=== PATIENT | female | born 1955 | race Caucasian/White ===

== ENCOUNTER → 2018-11-05 | Outpatient (CLI) | payer BC, MEDICAID | LOC: CARD 13:48 | PROVIDERS: ATTEND Physician Assistant | DX: I08.1 Rheumatic disorders of both mitral and tricuspid valves (principal); I42.0 Dilated cardiomyopathy; I44.7 Left bundle-branch block, unspecified; Z95.810 Presence of automatic (implantable) cardiac defibrillator | CPT/HCPCS: 93306 ==

== ENCOUNTER → 2018-12-06 | Outpatient (CLI) | payer BC ==
[~2018-12-06] VITALS: Ht 167.6 cm; Wt 68.9 kg
[~2018-12-06] MED LIST: ASPI-586 PO; ATOR40TA PO; CATHETER FLUSH 10 ML SYR IV PRN; CHOL500049 PO; CNC1KV IM; CRV25T PO; FURO-125 PO; LORA10TA7 PO; MULT-436 PO; OMEG-25 PO; POTA10TA10 PO; REGADENOSON 0.4 MG/5 ML SYR (LEXISCAN) IV ONE; SACU1TAB PO
--- NOTE | 2018-12-06 19:10 | STRESS TEST ---
DATE OF SERVICE: 12/06/2018 LEXISCAN MYOVIEW STRESS TEST REPORT REFERRING PHYSICIAN: Nima Hopkins MD Baseline heart rate is 66. Baseline blood pressure 159/81. Baseline EKG is sinus rhythm with left bundle branch block. In summary, the patient was injected with 11.0 mCi of technetium-99 Myoview and the resting images were obtained. Then, the patient received 0.4 mg of Lexiscan followed by 32.0 mCi of technetium-99 Myoview. Throughout the test, there were no EKG changes. The resting and stress images were reviewed and compared in the short axis, horizontal long axis, and vertical long axis views. Review of the images showed breast attenuation. There is mild decreased uptake at the inferoapical segment and inferoseptum with mild reversibility. SSS is 5, SDS 4, TID value 1.07. On the gated images, the left ventricle appeared to be prominent with diffuse left ventricular hypokinesia, calculated ejection fraction 30%. CONCLUSION: 1. The patient tolerated Lexiscan well. 2. Breast attenuation with mild ischemia involving the mid to apical inferior wall and inferoseptum. 3. Prominent left ventricle with diffuse left ventricular hypokinesia, calculated ejection fraction 30%. Job ID: [id number] DocumentID: [id number] Dictated Date: 12/06/2018 16:40:13 Regulatory Consultant Date: 12/06/2018 19:09:40 Dictated By: ANGELO ROSE MD
== END ==
LOC: CARD 07:07
PROVIDERS: ATTEND Physician Assistant
DX: I99.8 Other disorder of circulatory system (principal); I42.0 Dilated cardiomyopathy; I44.7 Left bundle-branch block, unspecified; Z95.810 Presence of automatic (implantable) cardiac defibrillator
CPT/HCPCS: 78452; 93017

== ENCOUNTER → 2019-01-11 | Outpatient (CLI) | payer BC ==
[~2019-01-11] MED LIST changes: -CATHETER FLUSH 10 ML SYR IV PRN; -REGADENOSON 0.4 MG/5 ML SYR (LEXISCAN) IV ONE
[2019-01-11 14:09] LABS: BASOPHILS % (AUTO) 0 % (0-10); EOSINOPHILS # (AUTO) 0.1 10^3/uL (0.0-0.3); EOSINOPHILS % (AUTO) 2 % (0-10); HEMATOCRIT 44 % (35-52); HEMOGLOBIN 14.4 G/DL (11.5-16.0); LYMPHOCYTES # (AUTO) 1.6 X 10^3 (1.0-4.0); LYMPHOCYTES % (AUTO) 24 % (12-44); MEAN CORPUSCULAR HEMOGLOBIN 30 PG (25-34); MEAN CORPUSCULAR HGB CONC 33 G/DL (32-36); MEAN CORPUSCULAR VOLUME 91 FL (80-99); MONOCYTES # (AUTO) 0.5 X 10^3 (0.0-1.0); MONOCYTES % (AUTO) 8 % (0-12); NEUTROPHILS # (AUTO) 4.3 X 10^3 (1.8-7.8); NEUTROPHILS % (AUTO) 66 % (42-75); PLATELET COUNT 305 10^3/uL (130-400); RED CELL DISTRIBUTION WIDTH 13.3 % (10.0-14.5); WHITE BLOOD COUNT 6.6 10^3/uL (4.3-11.0)
[2019-01-11 14:31] LABS: ALANINE AMINOTRANSFERASE 13 U/L (0-55); ALBUMIN 4.5 GM/DL (3.2-4.5); ALKALINE PHOSPHATASE 79 U/L (40-136); BILIRUBIN,TOTAL 1.2 MG/DL (0.1-1.0); BUN/CREATININE RATIO 9; CALCIUM 10.2 MG/DL (8.5-10.1); CARBON DIOXIDE 25 MMOL/L (21-32); CHLORIDE 107 MMOL/L (98-107); CHOLESTEROL 172 MG/DL (< 200); GFR ESTIMATED > 60; GLUCOSE 103 MG/DL (70-105); HDL CHOLESTEROL 50 MG/DL (40-60); POTASSIUM 3.8 MMOL/L (3.6-5.0); SODIUM 140 MMOL/L (135-145); TOTAL PROTEIN 7.4 GM/DL (6.4-8.2); TRIGLYCERIDES 135 MG/DL (<150); VLDL CHOLESTEROL 27 MG/DL (5-40)
--- NOTE | 2019-01-11 15:15 | Diagnostic Imaging Report ---
INDICATION: Shortness of breath. TIME OF EXAMINATION: 2:16 PM. COMPARISON: Correlation is made with the prior chest from 12/08/2018. FINDINGS: The cardiac defibrillator remains in place. The heart size is stable. The lungs are clear. No infiltrates are seen. There is no effusion or pneumothorax. IMPRESSION: Stable chest. No acute cardiopulmonary process is detected. Dictated by: Dictated on workstation # [id number]
== END ==
LOC: LAB 13:33
PROVIDERS: ATTEND Nurse Practitioner Family
DX: I50.22 Chronic systolic (congestive) heart failure (principal); E55.9 Vitamin D deficiency, unspecified; E78.5 Hyperlipidemia, unspecified; R73.9 Hyperglycemia, unspecified
CPT/HCPCS: 36415; 71046; 80053; 80061; 82306; 83036; 83880; 84443; 85025; 85379

== ENCOUNTER → 2019-02-17 | Outpatient (CLI) | payer BC ==
[~2019-02-17] MED LIST changes: -SACU1TAB PO; +SACU1TAB2 PO
== END ==
LOC: CARD 12:56
PROVIDERS: ATTEND Physician Assistant
DX: I07.1 Rheumatic tricuspid insufficiency (principal); I31.3 Pericardial effusion (noninflammatory); I42.0 Dilated cardiomyopathy; I44.7 Left bundle-branch block, unspecified; Z95.810 Presence of automatic (implantable) cardiac defibrillator
CPT/HCPCS: 93306

== ENCOUNTER → 2020-01-23 | Outpatient (CLI) | payer BC | LOC: CARD 10:30 | PROVIDERS: ATTEND Internal Medicine Cardiovascular Disease | DX: I42.0 Dilated cardiomyopathy (principal); I44.7 Left bundle-branch block, unspecified; I50.9 Heart failure, unspecified; I07.1 Rheumatic tricuspid insufficiency; Z95.810 Presence of automatic (implantable) cardiac defibrillator | CPT/HCPCS: 93306 ==

== ENCOUNTER 2020-02-27 13:56 | Inpatient (IN) | payer BC ==
[~2020-02-27] VITALS: Ht 167.7 cm; Wt 76.0 kg
[2020-02-27] MEDS ORDERED: LACTATED RINGERS 1,000 ML IV ONE (14:24)
[2020-02-27] MEDS ORDERED: PANTOPRAZOLE 40 MG (PROTONIX) VIAL IV ONE (14:30)
[2020-02-27] MEDS ORDERED: ONDANSETRON 4 MG/2 ML (SDV) Z0FRAN IVP ONE (14:30)
--- NOTE | 2020-02-27 14:31 | ED GI ---
General Stated Complaint: N/V DIARRHEA Source of Information: Patient (LIMITED HISTORIAN) History of Present Illness Date Seen by Provider: Feb 27, 2020 Time Seen by Provider: 14:17 Initial Comments PT ARRIVES VIA POV FROM HOME, WANTS WHEELCHAIR ON ARRIVAL STATES SHE HAS BEEN SICK FOR A MONTH, WITH NAUSEA/VOMITING/DIARRHEA AND ABDOMINAL AND BACK DISCOMFORT STATES SHE WAS HOSPITALIZED APPROXIMATELY 2-3 WEEKS AGO AT [place] FOR THIS, STATES SHE HAD "E. COLI" BUT DID NOT KNOW DETAILS--IF IN HER URINE OR STOOL. DOES NOT KNOW IF SHE IS TAKING ANTIBIOTICS OR NOT OR IF SHE WAS PRESCRIBED ANY MEDICATION WHEN SHE WAS DISMISSED FROM HOSPITAL. STATES SHE HAD EGD "TO CHECK FOR ULCERS" BUT DOES NOT KNOW RESULTS. DOES NOT KNOW IF SHE ALSO HAD A COLONOSCOPY WELL. NO FEVER C/O DECREASED URINE OUTPUT--STATES SHE HAS STAGE 3 KIDNEY FAILURE, AND DID NOT KEEP HER APPOINTMENT WITH ACCOUNT SUPPORT MANAGER LAST THURSDAY BECAUSE SHE WAS TOO SICK STATES SHE HAS HAD DIARRHEA X 3-4 TODAY. NO BLACK/BLOODY/TARRY STOOLS STATES SHE HAS "VOMITED" 7-8 TIMES TODAY--ACTUALLY ONLY HAD DRY HEAVES, NO ACTUAL EMESIS--STATES "EVERY THING COMES BACK UP--EVEN ICE CHIPS". HAD CHOCOLATE PUDDING AND CHICKEN NOODLE SOUP TODAY STATES HER BACK AND ABDOMEN ARE "UNCOMFORTABLE" SYMPTOMS NO DIFFERENT TODAY HAS NOT FOLLOWED UP WITH PCP FOR THIS PROBLEM HAD ROUTINE LAB DONE BY MUNITIONS WORKER LAST WEEK AND HAD ROUTINE APPOINTMENT STATES "MY KIDNEYS ARE MESSED UP AGAIN" DENIES ANY HISTORY OF GI PROBLEMS USES MARIJUANA ON REGULAR BASIS DENIES ALCOHOL USE NO KNOWN SICK CONTACTS WITH SAME. NO SUSPICIOUS FOODS LIVES AT HOME WITH NO KNOWN EXPOSURE TO COVID-19 PCP: GOES TO [facility] IN [place] MUNITIONS WORKER: DR. ROSE Allergies and Home Medications Allergies Coded Allergies: Penicillins (Verified Allergy, Unknown, Hives, 02/27/20) morphine (Unverified Allergy, Unknown, 12/06/18) paroxetine (Verified Adverse Reaction, Unknown, 02/27/20) increased psych symptoms Home Medications Aspirin 81 Mg Tablet., 81 MG PO DAILY, (Reported) Atorvastatin Calcium 40 Mg Tablet, 40 MG PO HS, (Reported) Carvedilol 25 Mg Tab, 25 MG PO BID, (Reported) Cholecalciferol (Vitamin D3) 50,000 Unit Capsule, 50,000 UNIT PO WEEK, (Reported) Cyanocobalamin 1,000 Mcg/Ml Inj, 1,000 MCG IM MONTHLY, (Reported) LAST INJECTION 08-01-2018 Furosemide 20 Mg Tablet, 20 MG PO DAILY, (Reported) Loratadine 10 Mg Tablet, 10 MG PO DAILY, (Reported) [place]-3S/Dha/Epa/Fish Oil 1 Each Capsule.dr, 1 EACH PO DAILY, (Reported) Potassium Chloride 10 Meq Tablet.er, 10 MEQ PO DAILY, (Reported) Sacubitril/Valsartan 1 Each Tablet, 1 TAB PO BID, (Reported) Patient Home Medication List Home Medication List Reviewed: Yes Review of Systems Review of Systems Constitutional: No fever Respiratory: No Symptoms Reported Cardiovascular: No Symptoms Reported Gastrointestinal: See HPI, Abdominal Pain, Diarrhea, Nausea, Poor Appetite, Poor Fluid Intake, Vomiting Genitourinary: See HPI (DECREASED OUTPUT) Musculoskeletal: see HPI, back pain Skin: no symptoms reported Psychiatric/Neurological: No Symptoms Reported Endocrine: No Symptoms Reported Hematologic/Lymphatic: No Symptoms Reported Past Wbqtnou-Vwterh-Clynno Hx Past Med/Social Hx: Reviewed and Corrections made Patient Social History Alcohol Use: Denies Use Recreational Drug Use: Yes (THC) Drug of Choice: marjiuana Smoking Status: Never a Smoker 2nd Hand Smoke Exposure: No Recent Foreign Travel: No Contact w/Someone Who Travel: No Past Medical History Surgeries: Yes (BILATERAL CATARACT SURGERY; REPAIR OF DETATCHED RETINA;HYST/OVARIES INTACT) Defibrillator, Eye Surgery, Gallbladder, Hysterectomy Respiratory: No Currently Using CPAP: No Currently Using BIPAP: No Cardiac: Yes (LBBB; DEFIBRILLATOR ) Cardiomyopathy, High Cholesterol, Hypertension Neurological: No Genitourinary: Yes Renal Failure Gastrointestinal: No Musculoskeletal: No Endocrine: Yes (PREDIABETIC) HEENT: Yes Dysphagia Cancer: No Psychosocial: No Integumentary: No Blood Disorders: No Physical Exam Vital Signs Vital Signs - First Documented 02/27/20 14:10 Temp 36.3 Pulse 98 Resp 18 B/P (MAP) 143/91 (108) Pulse Ox 94 O2 Delivery Room Air Capillary Refill : Height/Weight/BMI Height: 5'6.00" Weight: 152lbs. 0.0oz. 68.446562tv; 24.5 BMI Method: General Appearance: WD/WN, no apparent distress, other (ANXIOUS, MOANING. 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, no motor/sensory deficits, alert, oriented x 3 Skin: normal color, warm/dry; No rash Focused Exam Lactate Level 02/27/20 15:15: Lactic Acid Level 1.70 Lactic Acid Level Laboratory Tests Test 02/27/20 15:15 Lactic Acid Level 1.70 MMOL/L (0.50-2.00) Progress/Results/Core Measures Results/Orders Lab Results Laboratory Tests Test 02/27/20 14:30 02/27/20 15:05 02/27/20 15:15 Range/Units White Blood Count 15.0 H 4.3-11.0 10^3/uL Red Blood Count 5.48 H 3.80-5.11 10^6/uL Hemoglobin 16.6 H 11.5-16.0 g/dL Hematocrit 46 35-52 % Mean Corpuscular Volume 84 80-99 fL Mean Corpuscular Hemoglobin 30 25-34 pg Mean Corpuscular Hemoglobin Concent 36 32-36 g/dL Red Cell Distribution Width 11.9 10.0-14.5 % Platelet Count 408 H 130-400 10^3/uL Mean Platelet Volume 9.2 9.0-12.2 fL Immature Granulocyte % (Auto) 1 % Neutrophils (%) (Auto) 70 42-75 % Lymphocytes (%) (Auto) 17 12-44 % Monocytes (%) (Auto) 12 0-12 % Eosinophils (%) (Auto) 0 0-10 % Basophils (%) (Auto) 0 0-10 % Neutrophils # (Auto) 10.6 H 1.8-7.8 10^3/uL Lymphocytes # (Auto) 2.5 1.0-4.0 10^3/uL Monocytes # (Auto) 1.7 H 0.0-1.0 10^3/uL Eosinophils # (Auto) 0.0 0.0-0.3 10^3/uL Basophils # (Auto) 0.0 0.0-0.1 10^3/uL Immature Granulocyte # (Auto) 0.1 0.0-0.1 10^3/uL Neutrophils % (Manual) 69 % Lymphocytes % (Manual) 19 % Monocytes % (Manual) 9 % Band Neutrophils 3 % Blood Morphology Comment NORMAL Erythrocyte Sedimentation Rate 5 0-30 MM/HR Prothrombin Time 13.6 12.2-14.7 SEC INR Comment 1.0 0.8-1.4 Activated Partial Thromboplast Time 22 L 24-35 SEC Sodium Level 127 L 135-145 MMOL/L Potassium Level 2.8 L 3.6-5.0 MMOL/L Chloride Level 80 L 98-107 MMOL/L Carbon Dioxide Level 24 21-32 MMOL/L Anion Gap 23 H 5-14 MMOL/L Blood Urea Nitrogen 66 H 7-18 MG/DL Creatinine 2.48 H 0.60-1.30 MG/DL Estimat Glomerular Filtration Rate 20 BUN/Creatinine Ratio 27 Glucose Level 116 H 70-105 MG/DL Calcium Level 9.9 8.5-10.1 MG/DL Corrected Calcium 8.5-10.1 MG/DL Magnesium Level 3.2 H 1.6-2.4 MG/DL Total Bilirubin 2.0 H 0.1-1.0 MG/DL Aspartate Amino Transf (AST/SGOT) 41 H 5-34 U/L Alanine Aminotransferase (ALT/SGPT) 22 0-55 U/L Alkaline Phosphatase 107 40-136 U/L C-Reactive Protein High Sensitivity 0.19 0.00-0.50 MG/DL Total Protein 8.3 H 6.4-8.2 GM/DL Albumin 4.7 H 3.2-4.5 GM/DL Amylase Level 94 25-125 U/L Lipase 63 8-78 U/L Procalcitonin 0.04 <0.10 NG/ML Urine Color YELLOW Urine Clarity CLEAR Urine pH 5.0 5-9 Urine Specific [place] 1.025 H 1.016-1.022 Urine Protein NEGATIVE NEGATIVE Urine Glucose (UA) NEGATIVE NEGATIVE Urine Ketones TRACE H NEGATIVE Urine Nitrite NEGATIVE NEGATIVE Urine Bilirubin 1+ H NEGATIVE Urine Urobilinogen 0.2 < = 1.0 MG/DL Urine Leukocyte Esterase NEGATIVE NEGATIVE Urine RBC (Auto) 1+ H NEGATIVE Urine RBC 2-5 H /HPF Urine WBC NONE /HPF Urine Squamous Epithelial Cells NONE /HPF Urine Crystals PRESENT H /LPF Urine Amorphous Sediment LARGE GI URATES H /LPF Urine Bacteria NEGATIVE /HPF Urine Casts PRESENT /LPF Urine Hyaline Casts 5-10 H /LPF Urine Mucus NEGATIVE /LPF Urine Culture Indicated NO Lactic Acid Level 1.70 0.50-2.00 MMOL/L My Orders Orders - KAILEE ANTONIO DO Ed Iv/Invasive Line Start (02/27/20 14:24) Monitor-Rhythm Ecg Trace Only (02/27/20 14:24) Straight Cath For Spec.-Adult (02/27/20 14:24) Ct Abdomen/Pelvis Wo (02/27/20 14:24) Acute Abd Series (02/27/20 14:24) Amylase (02/27/20 14:24) Cbc With Automated Diff (02/27/20 14:24) Comprehensive Metabolic Panel (02/27/20 14:24) Lactic Acid Analyzer (02/27/20 14:24) Lipase (02/27/20 14:24) Magnesium (02/27/20 14:24) Procalcitonin (Pct) (02/27/20 14:24) Protime With Inr (02/27/20 14:24) Partial Thromboplastin Time (02/27/20 14:24) Ua Culture If Indicated (02/27/20 14:24) Ed Iv/Invasive Line Start (02/27/20 14:24) Lactated Ringers (Lr 1000 Ml Iv Solution (02/27/20 14:24) Ondansetron Injection (Zofran Injectio (02/27/20 14:30) Pantoprazole Injection (Protonix Injecti (02/27/20 14:30) Manual Differential (02/27/20 14:30) Blood Culture (02/27/20 14:55) Hs C Reactive Protein (02/27/20 14:55) Erythrocyte Sedimentation Rate (02/27/20 14:55) Ns W/Kcl 40 Meq/L (Ns Iv W/Kcl 40 Meq/L) (02/27/20 15:30) Medications Given in ED Current Medications Medications Dose Ordered Sig/Allyson Route Start Time Stop Time Status Last Admin Dose Admin Lactated Ringer's 1,000 ml @ 0 mls/hr Q0M ONCE IV 02/27/20 14:24 02/27/20 14:27 DC 02/27/20 14:49 1,000 MLS/HR Ondansetron HCl 4 mg ONCE ONCE IVP 02/27/20 14:30 02/27/20 14:31 DC 02/27/20 14:47 4 MG Pantoprazole 40 mg ONCE ONCE IV 02/27/20 14:30 02/27/20 14:31 DC 02/27/20 14:50 40 MG Vital Signs/I&O 02/27/20 14:10 Temp 36.3 Pulse 98 Resp 18 B/P (MAP) 143/91 (108) Pulse Ox 94 O2 Delivery Room Air Progress Progress Note : Progress Note GIVEN IV FLUIDS, ZOFRAN AND PROTONIX--NAUSEA IMPROVED NO DIARRHEA DURING ER STAY Diagnostic Imaging Comments ABDOMEN XRAYS--PER RADIOLOGIST REPORT AT [address] ABDOMEN/PELVIS--PER RADIOLOGIST REPORT AT 1549 FINDINGS: The lung bases are clear. No discrete liver mass is identified. The gallbladder is surgically absent. No biliary ductal dilatation is seen. The pancreas and spleen are unremarkable. No adrenal mass is detected. No definite renal calculus or hydronephrosis is identified. The aorta and iliac vessels are calcified but nonaneurysmal. No central retroperitoneal or mesenteric lymphadenopathy is seen. The small and large bowel loops are of normal caliber. There is diverticulosis of the sigmoid but no evidence of acute diverticulitis. The bladder is decompressed. The uterus appears surgically absent. There is no free fluid or fluid collection. No definite pelvic lymphadenopathy is seen. IMPRESSION: Essentially unremarkable noncontrast CT of the abdomen and pelvis. No acute abnormality is detected. The patient does have uncomplicated sigmoid diverticulosis. Reviewed: Reviewed by Mi Departure Communication (Admissions) Family Conversation [id number]--CALLED DR. ROSE'S OFFICE, MESSAGE LEFT ON MACHINE [phone]--SPOKE WITH DR. MARINELLI, ACCEPTS PT FOR ADMIT. Impression Primary Impression: Nausea, vomiting, and diarrhea Additional Impressions: Dehydration Hyponatremia Hypokalemia Renal insufficiency Disposition: ADMITTED INPATIENT Condition: Stable Admissions Decision to Admit Reason: Admit from ER (General) Decision to Admit/Date: Feb 27, 2020 Time/Decision to Admit Time: 15:50 Departure-Patient Inst. Referrals: NO,LOCAL PHYSICIAN (PCP/Family) Primary Care Physician KAILEE ANTONIO DO Feb 27, 2020 14:31
[2020-02-27 14:41] LABS: BASOPHILS % (AUTO) 0 % (0-10); EOSINOPHILS % (AUTO) 0 % (0-10); HEMATOCRIT 46 % (35-52); HEMOGLOBIN 16.6 g/dL (11.5-16.0); LYMPHOCYTES # (AUTO) 2.5 10^3/uL (1.0-4.0); LYMPHOCYTES % (AUTO) 17 % (12-44); MEAN CORPUSCULAR HEMOGLOBIN 30 pg (25-34); MEAN CORPUSCULAR HGB CONC 36 g/dL (32-36); MEAN CORPUSCULAR VOLUME 84 fL (80-99); MEAN PLATELET VOLUME 9.2 fL (9.0-12.2); MONOCYTES # (AUTO) 1.7 10^3/uL (0.0-1.0); MONOCYTES % (AUTO) 12 % (0-12); NEUTROPHILS # (AUTO) 10.6 10^3/uL (1.8-7.8); NEUTROPHILS % (AUTO) 70 % (42-75); PLATELET COUNT 408 10^3/uL (130-400)
[2020-02-27 14:52] LABS: ALBUMIN 4.7 GM/DL (3.2-4.5); CHLORIDE 80 MMOL/L (98-107); POTASSIUM 2.8 MMOL/L (3.6-5.0); SODIUM 127 MMOL/L (135-145)
[2020-02-27 14:53] LABS: AMYLASE 94 U/L (25-125); CALCIUM 9.9 MG/DL (8.5-10.1)
[2020-02-27 14:54] LABS: GLUCOSE 116 MG/DL (70-105); TOTAL PROTEIN 8.3 GM/DL (6.4-8.2)
[2020-02-27 14:55] LABS: CARBON DIOXIDE 24 MMOL/L (21-32)
[2020-02-27 14:58] LABS: ALKALINE PHOSPHATASE 107 U/L (40-136); CREATININE SERUM 2.48 MG/DL (0.60-1.30); GFR ESTIMATED 20
[2020-02-27 14:59] LABS: BUN/CREATININE RATIO 27; PROTHROMBIN TIME PATIENT 13.6 SEC (12.2-14.7)
[2020-02-27 15:01] LABS: ALANINE AMINOTRANSFERASE 22 U/L (0-55); MAGNESIUM 3.2 MG/DL (1.6-2.4)
[2020-02-27 15:02] LABS: LIPASE 63 U/L (8-78)
[2020-02-27 15:10] LABS: BAND NEUTROPHILS 3 %; LYMPHOCYTES % (MANUAL) 19 %; MONOCYTES % (MANUAL) 9 %; NEUTROPHILS % (MANUAL) 69 %; RBC MORPH NORMAL
[2020-02-27 15:14] LABS: BILIRUBIN,URINE 1+ (NEGATIVE); CLARITY,URINE CLEAR; COLOR,URINE YELLOW; GLUCOSE, URINE (UA) NEGATIVE (NEGATIVE); KETONES,URINE TRACE (NEGATIVE); LEUKOCYTE ESTERASE ,URINE NEGATIVE (NEGATIVE); NITRITE,URINE NEGATIVE (NEGATIVE); PROTEIN,URINE NEGATIVE (NEGATIVE)
[2020-02-27 15:28] LABS: BACTERIA,URINE NEGATIVE /HPF
[2020-02-27 15:29] LABS: AMORPHOUS SEDIMENT,UR LARGE AMOR URATES /LPF
[2020-02-27] MEDS ORDERED: NS W/KCL 40 MEQ/L 1,000 ML IV SCH (15:30)
--- NOTE | 2020-02-27 15:36 | Diagnostic Imaging Report ---
PROCEDURE: CT abdomen and pelvis without contrast. TECHNIQUE: Multiple contiguous axial images were obtained through the abdomen and pelvis without the use of intravenous contrast. Auto Exposure Controls were utilized during the CT exam to meet ALARA standards for radiation dose reduction. INDICATION: Abdominal pain with nausea, vomiting, and diarrhea x 1 week. COMPARISON: No prior studies are available for comparison. FINDINGS: The lung bases are clear. No discrete liver mass is identified. The gallbladder is surgically absent. No biliary ductal dilatation is seen. The pancreas and spleen are unremarkable. No adrenal mass is detected. No definite renal calculus or hydronephrosis is identified. The aorta and iliac vessels are calcified but nonaneurysmal. No central retroperitoneal or mesenteric lymphadenopathy is seen. The small and large bowel loops are of normal caliber. There is diverticulosis of the sigmoid but no evidence of acute diverticulitis. The bladder is decompressed. The uterus appears surgically absent. There is no free fluid or fluid collection. No definite pelvic lymphadenopathy is seen. IMPRESSION: Essentially unremarkable noncontrast CT of the abdomen and pelvis. No acute abnormality is detected. The patient does have uncomplicated sigmoid diverticulosis. Dictated by: Dictated on workstation # [id number]
--- NOTE | 2020-02-27 15:40 | Diagnostic Imaging Report ---
INDICATION: Abdominal pain. COMPARISON: 01/11/2019. FINDINGS: Supine and upright views of the abdomen show a nondistended bowel gas pattern. No abnormal air fluid levels or free intraperitoneal air is seen. No abnormal extraosseous calcifications are seen. Bony and soft tissue structures are within normal limits. No organomegaly is identified. Accompanying upright chest shows normal heart size and pulmonary vascularity. The lungs are well aerated and clear. The mediastinum is normal in appearance. Left-sided AICD is noted, as is calcified aortic atherosclerosis. IMPRESSION: 1. No bowel obstruction or free air. 2. Normal chest. No pneumonia or pulmonary edema. Dictated by: Dictated on workstation # [id number]
--- NOTE | 2020-02-27 16:41 | NUR ---
Attempted to call report; no answer.
--- NOTE | 2020-02-27 16:55 | NUR ---
Attempted to call report; no answer.
--- NOTE | 2020-02-27 16:58 | NUR ---
THIS RN PHONED ED FOR REPORT FROM MYAH PINEDA. WILL WAIT FOR PATIENT TO ARRIVE TO FLOOR.
[2020-02-27 17:33] LABS: AMPHETAMINE SCREEN, URINE NEGATIVE (NEGATIVE); BARBITURATE SCREEN URINE NEGATIVE (NEGATIVE); BENZODIAZEPINES SCREEN URINE NEGATIVE (NEGATIVE); CANNABINOID SCREEN, URINE POSITIVE (NEGATIVE); COCAINE SCREEN URINE NEGATIVE (NEGATIVE); METHADONE STAT NEGATIVE (NEGATIVE); METHAMPHETAMINE SCREEN URINE S NEGATIVE (NEGATIVE); OPIATE SCREEN URINE NEGATIVE (NEGATIVE); OXYCODONE STAT NEGATIVE (NEGATIVE); PROPOXYPHENE STAT NEGATIVE (NEGATIVE); TRICYCLIC ANTIDEPRESSANTS SCRE NEGATIVE (NEGATIVE)
--- NOTE | 2020-02-27 17:35 | NUR ---
ANDRES GRIGSBY admitted to room 405-1, with an admitting diagnosis of N/V/D DEHYDRATION, RENAL FAILURE, on 02/27/20 from ED via WHEELCHAIR, accompanied by ER STAFF. ANDRES GRIGSBY introduced to surroundings, call light, bed controls, phone, TV, temperature control, lights, meal times, smoking policy, visitor policy, side rail policy, bathrooms and showers. Patient Rights given to patient in the handbook. ANDRES GRIGSBY verbalizes understanding that [facility] is not responsible for the loss or damage to any personal effects or valuables that are kept in the patients posession during their hospitalization. ANDRES GRIGSBY verbalizes understanding of Interdisciplinary Patient Education. Patient and/or family were informed about the Rapid Response Team and its purpose.
[2020-02-27 17:38] VITALS: BP 161/106
[2020-02-27] MEDS: NS W/KCL 20 MEQ/L 1,000 ML IV SCH (18:41)
[2020-02-27 20:10] VITALS: BP 143/83
[2020-02-28] VITALS (8 sets, daily range): BP systolic 91–138; BP diastolic 53–82
[2020-02-28] MEDS: NS W/KCL 20 MEQ/L 1,000 ML IV SCH ×2 (01:25→08:38)
[2020-02-28 04:57] LABS: BASOPHILS % (AUTO) 0 % (0-10); EOSINOPHILS % (AUTO) 1 % (0-10); HEMATOCRIT 38 % (35-52); HEMOGLOBIN 13.2 g/dL (11.5-16.0); LYMPHOCYTES # (AUTO) 2.3 10^3/uL (1.0-4.0); LYMPHOCYTES % (AUTO) 37 % (12-44); MEAN CORPUSCULAR HEMOGLOBIN 30 pg (25-34); MEAN CORPUSCULAR HGB CONC 35 g/dL (32-36); MEAN CORPUSCULAR VOLUME 87 fL (80-99); MEAN PLATELET VOLUME 9.1 fL (9.0-12.2); MONOCYTES # (AUTO) 1.1 10^3/uL (0.0-1.0); MONOCYTES % (AUTO) 17 % (0-12); NEUTROPHILS # (AUTO) 2.8 10^3/uL (1.8-7.8); NEUTROPHILS % (AUTO) 45 % (42-75); PLATELET COUNT 255 10^3/uL (130-400); WHITE BLOOD COUNT 6.2 10^3/uL (4.3-11.0)
[2020-02-28 05:27] LABS: ALBUMIN 3.6 GM/DL (3.2-4.5); CALCIUM 8.6 MG/DL (8.5-10.1); CREATININE SERUM 1.7 MG/DL (0.60-1.30); POTASSIUM 2.9 MMOL/L (3.6-5.0); TOTAL PROTEIN 6.3 GM/DL (6.4-8.2)
[2020-02-28] MEDS: ONDANSETRON 4 MG/2 ML (SDV) Z0FRAN IVP PRN ×3 (05:51→13:19)
[2020-02-28] MEDS ORDERED: POTASSIUM CL 10MEQ/50ML IVPB 50 ML IV SCH (07:30)
[2020-02-28] MEDS ORDERED: KCL 20 MEQ TAB (K-DUR) PO NR (07:30)
--- NOTE | 2020-02-28 08:29 | NUR ---
Messaged Dr. Pappas to confirm cancelled stool culture and isolation. Orders confirmed. Patient placed on standard precautions at this time.
[2020-02-28] MEDS: PANTOPRAZOLE 40 MG (PROTONIX) VIAL IV SCH (09:00)
--- NOTE | 2020-02-28 09:30 | NUR ---
Patient began calling out for help. Went into patients room. Patient stated that her IV was hurting her. DCd IV at this time as patient is receiving IV potassium. Very minimal edema to site is present. No other signs of infiltration. Patient states pain subsided with removal of IV. Dr. Pappas notified at this time.
--- NOTE | 2020-02-28 10:10 | NUR ---
Dr Pappas assessed patient at this time and requested to DC potassium and fluids.
[2020-02-28] MEDS ORDERED: LORazepam 0.5 MG (ATIVAN) TABLET PO NR (13:15)
[2020-02-28] MEDS ORDERED: ONDANSETRON 4 MG (ZOFRAN) ORAL DISSOLVE TAB PO PRN (13:15)
--- NOTE | 2020-02-28 13:36 | NUR ---
RD ASSESSMENT PMHx: hypercholesterolemia; HTN; renal failure; dysphagia; PT INTERACTION: Pt was awake and pleasant during nutrition assessment. Pt states current appetite is "not too bad." Note avg PO intake 25% x2meal, per chart review. Pt states following a low-sodium diet at home, and has no issues with chewing/swallowing food. Pt states recent issues with nausea, vomiting, and diarrhea, beginning on 01/24. Pt states last BM was 02/26, and it was diarrhea. Note pt not currently on bowel regimen per chart review. Pt states recent wt loss, but was unsure of amount/timeframe. Note unable to determine recent wt hx, per chart review. ABNORMAL NUTRITION-RELATED LAB VALUES LOW: Na 131; K 2.9; Cl 93; Pro 6.3; HIGH: BUN 44; cr 1.70; bili 2.0 Est. kcal needs: 1585-3335 kcal | 20-25 kcal/kg Est. Pro needs: 61-77 g Pro | 0.8-1.0 g Pro/kg PES STATEMENT: Inadequate oral intake (NI-2.1) related to loss of appetite, nausea, vomiting, and diarrhea, as evidenced by pt interview and avg PO intake 25% x2meal. INTERVENTION: Continue with current diet order of Clear Liquid diet. Pt may benefit from nutrition supplementation if PO intake remains low. Would recommend diet advancement when medically able and as tolerated. Will continue to follow and reassess as pt needs, intake, and status change. Akin Romo, MS RD LD
--- NOTE | 2020-02-28 13:39 | NUR ---
20g IV placed in right wrist.
--- NOTE | 2020-02-28 14:19 | History & Physical-Hospitalist ---
History of Present Illness HPI/Chief Complaint Cookie Quigley is a 64-year-old female with past medical history of hypertension, hyperlipidemia, heart failure with reduced ejection fraction, bipolar disorder, who presented with intractable nausea and vomiting. She reports that she has been having issues for the past month. She was admitted to [facility] for similar issues and the workup there did not reveal a cause of her nausea and vomiting. She says she underwent an EGD which was unrevealing. She was discharged home and says that she did well for a few days but then had more nausea, vomiting, and diarrhea. She is not diabetic. She does smoke marijuana frequently as a self treatment for her bipolar disorder. She says she is not on any medications for bipolar. She denies any fevers. She denies any shortness of breath or cough. She reports abdominal pain. Source: patient Exam Limitations: no limitations Date Seen 02/28/20 Time Seen by a Provider: 09:30 Attending Physician Kimberly Marinelli MD PCP No,Local Physician Referring Physician Date of Admission Feb 27, 2020 at 15:50 Home Medications & Allergies Home Medications Reviewed patient Home Medication Reconciliation performed by pharmacy medication reconciliations biodiesel processing technician and/or nursing. Patients Allergies have been reviewed. Allergies Allergies Coded Allergies Penicillins (Verified Allergy, Unknown, Hives, 02/27/20) morphine (Unverified Allergy, Unknown, 12/06/18) paroxetine (Verified Adverse Reaction, Unknown, 02/27/20) increased psych symptoms Past Irbdaqf-Sngjxn-Drauac Hx Past Med/Social Hx: Reviewed Nursing Past Med/Soc Hx Patient Social History Alcohol Use: Denies Use Recreational Drug Use: Yes Drug of Choice: THC Smoking Status: Never a Smoker 2nd Hand Smoke Exposure: No Physical Abuse Screen: No Sexual Abuse: No Recent Foreign Travel: No Contact w/other who traveled: No Recent Hopitalizations: Yes ([facility] for c-diff) Recent Infectious Disease Expo: No Past Medical History Surgeries: Defibrillator, Eye Surgery, Gallbladder, Hysterectomy Currently Using CPAP: No Currently Using BIPAP: No Cardiac: Cardiomyopathy, High Cholesterol, Hypertension Hysterectomy, Tubal Ligation Genitourinary: Renal Failure HEENT: Dysphagia History of Blood Disorders: No Review of Systems Constitutional: no symptoms reported EENTM: no symptoms reported Respiratory: no symptoms reported Cardiovascular: no symptoms reported Gastrointestinal: abdominal pain, diarrhea, nausea, vomiting Genitourinary: no symptoms reported Musculoskeletal: no symptoms reported Skin: no symptoms reported Psychiatric/Neurological: No Symptoms Reported Physical Exam Physical Exam Vital Signs Vital Signs - First Documented 02/27/20 14:10 Temp 36.3 Pulse 98 Resp 18 B/P (MAP) 143/91 (108) Pulse Ox 94 O2 Delivery Room Air Capillary Refill : Less Than 3 Seconds Height, Weight, BMI Height: 5'6.00" Weight: 152lbs. 0.0oz. 68.730624lt; 27.41 BMI Method: General Appearance: No Apparent Distress, WD/WN HEENT: PERRL/EOMI, Pharynx Normal Respiratory: Lungs Clear, Normal Breath Sounds, No Respiratory Distress Cardiovascular: Regular Rate, Rhythm, No Edema, No Murmur Gastrointestinal: Normal Bowel Sounds, Soft, Tenderness (diffusely) Extremity: Normal Inspection, Non Tender, No Pedal Edema Neurologic/Psychiatric: Alert, Oriented x3, No Motor/Sensory Deficits, Normal Mood/Affect Skin: Normal Color, Warm/Dry Results Results/Procedures Labs Laboratory Tests 02/27/20 14:30 02/28/20 04:15 Patient resulted labs reviewed. Imaging: Reviewed Imaging Report Assessment/Plan Admission Diagnosis intractable nausea and vomiting Admission Status: Observation Assessment and Plan Intractable nausea and vomiting Likely cannabis hyperemesis syndrome Acute kidney injury superimposed on chronic kidney disease Cannabis abuse Bipolar disorder CT Abdomen unremarkable Obtain records from [facility] Ativan, Zoan and Compazine as needed Clear liquid diet, advance as tolerated Discontinue marijuana use Hypokalemia Hyponatremia Monitor and replace electrolytes as needed HTN HLD Chronic HFrEF Resume home meds Hold Lasix DVT Prophylaxis: Lovenox Diagnosis/Problems Diagnosis/Problems (1) Intractable nausea and vomiting Status: Acute (2) Cannabis hyperemesis syndrome concurrent with and due to cannabis abuse Status: Acute (3) Acute kidney injury superimposed on chronic kidney disease Status: Acute (4) HTN (hypertension) Status: Chronic (5) HLD (hyperlipidemia) Status: Chronic (6) Chronic HFrEF (heart failure with reduced ejection fraction) Status: Chronic (7) Hyponatremia Status: Acute (8) Hypokalemia Status: Acute Clinical Quality Measures DVT/VTE Risk/Contraindication: Risk Factor Score Per Nursin RFS Level Per Nursing on Admit: 4+=Very High KIMBERLY MARINELLI MD Feb 28, 2020 14:19
[2020-02-28] MEDS ORDERED: PROCHLORPERAZINE 10 MG/2ML INJ (COMPAZINE) IV PRN (14:30)
[2020-02-28] MEDS ORDERED: ENOXAPARIN 40 MG/0.4 ML (LOVENOX) SYR SQ SCH (14:30)
[2020-02-28] MEDS ORDERED: CARVEDILOL 12.5 MG (COREG) TABLET PO NR (14:30)
[2020-02-28] MEDS ORDERED: POTA10CA43 PO (15:03)
[2020-02-28] MEDS ORDERED: BUSP10TA95 PO (15:03)
[2020-02-28] MEDS ORDERED: CARV25TA PO (15:03)
[2020-02-28] MEDS ORDERED: AMLO-251 PO (15:03)
[2020-02-28] MEDS ORDERED: OMEP40CA27 PO (15:03)
[2020-02-28] MEDS ORDERED: ASPI-1238 PO (15:03)
[2020-02-28] MEDS ORDERED: LAMO25TA8 PO (15:03)
[2020-02-28] MEDS ORDERED: FURO40TA4 PO (15:03)
[2020-02-28] MEDS ORDERED: CETI10TA49 PO (15:06)
--- NOTE | 2020-02-28 15:08 | NUR ---
SPOKE WITH THE PT (SHE HAD A MED LIST ON HER PHONE BUT IT IS NOT ACCURATE) AND WENT THRU THE EXT MED HISTORY TO COMPLETE THE MED REC ACCORDING TO THE PT SHE IS NOT CURRENTLY TAKING ENTRESTO OTC MEDS: FISH OIL ASPIRIN 81 LORATADINE
[2020-02-28] MEDS: SACUBITRIL/VALSARTAN 24/26 MG (ENTRESTO) TABLET PO SCH (20:19)
[2020-02-28] MEDS: LORazepam 0.5 MG (ATIVAN) TABLET PO SCH (20:20)
[2020-02-28] MEDS: CARVEDILOL 12.5 MG (COREG) TABLET PO SCH (20:20)
[2020-02-29 00:40] VITALS: BP 72/41
--- NOTE | 2020-02-29 00:54 | NUR ---
This RN contacted Dr Murphy and informed her that patients blood pressure was 95/57 at 23:40, and 72/41 when rechecked at 00:40, also that patient is alert and oriented and asymptomatic. No new orders given at this time.
[2020-02-29 01:41] VITALS: BP 91/58
[2020-02-29 03:34] VITALS: BP 97/53
[2020-02-29 05:34] LABS: POTASSIUM 2.7 MMOL/L (3.6-5.0)
[2020-02-29 05:36] LABS: CALCIUM 8.5 MG/DL (8.5-10.1)
[2020-02-29 05:40] LABS: CREATININE SERUM 1.34 MG/DL (0.60-1.30)
[2020-02-29] MEDS ORDERED: KCL 20 MEQ TAB (K-DUR) PO NR ×2 (07:30→12:00)
[2020-02-29] MEDS ORDERED: NS W/KCL 20 MEQ/L 1,000 ML IV SCH (07:45)
[2020-02-29 08:00] VITALS: BP 93/53
[2020-02-29] MEDS: SACUBITRIL/VALSARTAN 24/26 MG (ENTRESTO) TABLET PO SCH ×2 (08:04→08:15)
[2020-02-29] MEDS: CARVEDILOL 12.5 MG (COREG) TABLET PO SCH (08:04)
[2020-02-29] MEDS: PANTOPRAZOLE 40 MG (PROTONIX) VIAL IV SCH ×2 (08:05→08:12)
[2020-02-29] MEDS: LORazepam 0.5 MG (ATIVAN) TABLET PO SCH (08:05)
--- NOTE | 2020-02-29 09:21 | Progress Note ---
Subjective Subjective Date Seen by Provider: Feb 29, 2020 Time Seen by Provider: 08:00 Pt fully alert and oriented. States that nausea and vomiting is 'a lot better' today as of 04:00. Pt was able to drink some sprite and eat itallian ice this morning - it did not increase her baseline nausea. Pts diarrhea did start back up last night, had 3 episodes then, denies hematochezia. Pts abdominal pain has resolved today; 0/10. Pt has no new complaints at this time. Pt denies chest pain or cough. Review of Systems General: No Chills; Night Sweats (every night at home, but not since admission as inpt ) Pulmonary: Dyspnea (due to ischemic cariomyopathy ); No Cough, No Pleuritic Chest Pain Cardiovascular: No: Chest Pain, Palpitations Gastrointestinal: Nausea, Vomiting, Diarrhea (started last night, 3 times); No: Abdominal Pain, Constipation Objective Exam Vital Signs Vital Signs - First Documented 02/27/20 14:10 Temp 36.3 Pulse 98 Resp 18 B/P (MAP) 143/91 (108) Pulse Ox 94 O2 Delivery Room Air Capillary Refill : Less Than 3 Seconds General Appearance: No Apparent Distress, WD/WN HEENT: PERRL/EOMI, Pharynx Normal Respiratory: Lungs Clear, Normal Breath Sounds, No Respiratory Distress Cardiovascular: Regular Rate, Rhythm, No Edema, No Murmur Gastrointestinal: Normal Bowel Sounds, Soft, Tenderness (diffusely) Extremity: Normal Inspection, Non Tender, No Pedal Edema Neurologic/Psychiatric: Alert, Oriented x3, No Motor/Sensory Deficits, Normal Mood/Affect Skin: Normal Color, Warm/Dry Results Lab Laboratory Tests 02/29/20 04:30: Sodium Level 135, Potassium Level 2.7L, Chloride Level 98, Carbon Dioxide Level 27, Anion Gap 10, Blood Urea Nitrogen 24H, Creatinine 1.34H, Estimat Glomerular Filtration Rate 40, BUN/Creatinine Ratio 18, Glucose Level 95, Calcium Level 8.5 Microbiology 02/27/20 Blood Culture - Preliminary, Resulted No growth Assessment/Plan Assessment/Plan Problems: (1) Intractable nausea and vomiting (2) Cannabis hyperemesis syndrome concurrent with and due to cannabis abuse (3) Acute kidney injury superimposed on chronic kidney disease (4) HTN (hypertension) (5) HLD (hyperlipidemia) (6) Chronic HFrEF (heart failure with reduced ejection fraction) (7) Hyponatremia (8) Hypokalemia Clinical Quality Measures DVT/VTE Risk/Contraindication: Risk Factor Score Per Nursin RFS Level Per Nursing on Admit: 4+=Very High Supervisory-Addendum Brief Verification & Attestation Participated in pt care: history, MDM, physical Personally performed: exam, history, MDM, supervision of care Care discussed with: Medical Student Procedures: n/a Results interpretation: Verified all documentation Verification and Attestation of Medical Student E/M Service A medical student performed and documented this service in my presence. I reviewed and verified all information documented by the medical student and made modifications to such information, when appropriate. I personally performed the physical exam and medical decision making. Lilly Marinelli, Mar 03, 2020,18:11 YANET MERCHANT MED STUDENT Feb 29, 2020 09:21 LILLY MARINELLI MD Mar 03, 2020 17:40
--- NOTE | 2020-02-29 10:00 | NUR ---
Notified Dr. Pappas that the patient immediately complain and screamed out in pain when attempting to start her IV fluids. IV flushed with no issues and does not appear to be infiltrated at this time. Non administered protonix. states he is think of discharging patient home today.
[2020-02-29] MEDS ORDERED: LORA-404 PO (10:14)
[2020-02-29] MEDS ORDERED: ONDN4T PO (10:14)
[2020-02-29] MEDS ORDERED: FURO40TA4 PO (10:14)
--- NOTE | 2020-02-29 12:53 | Discharge Summary ---
Discharge Summary Hospital Course Was the Problem List Reviewed?: Yes Problems/Dx: (1) Intractable nausea and vomiting Status: Acute (2) Cannabis hyperemesis syndrome concurrent with and due to cannabis abuse Status: Acute (3) Acute kidney injury superimposed on chronic kidney disease Status: Acute (4) HTN (hypertension) Status: Chronic (5) HLD (hyperlipidemia) Status: Chronic (6) Chronic HFrEF (heart failure with reduced ejection fraction) Status: Chronic (7) Hyponatremia Status: Acute (8) Hypokalemia Status: Acute Hospital Course Date of Admission: Feb 28, 2020 at 14:45 Admission Diagnosis: Intractable nausea and vomiting Family Physician/Provider: Juany Hernandez Physician Date of Discharge: 02/29/20 Discharge Diagnosis: Cannabis hyperemesis syndrome Hospital Course: Cookie Quigley is a 64 year old female who presented with intractable nausea and vomiting. She had recently been through an exhaustive workup at [facility] which was unrevealing for a cause of her nausea and vomiting. She has been a chronic cannabis user. Her presentation was thought to be due to cannabis hyperemesis syndrome. She was given a prescription for Zofran and Ativan for nausea and vomiting. She was recommended to discontinue cannabis use. She reported smoking marijuana to self-treat her bipolar disorder. She says she is willing to begin medication for bipolar with her PCP. Her course was complicated by acute kidney injury which resolved with IV fluids. She had hypokalemia which was replaced as needed. She was instructed to hold her Lasix until her follow up with her PCP in about a week. She was discharged home in stable condition. Labs and Pending Lab Test: Laboratory Tests 02/29/20 04:30: Sodium Level 135, Potassium Level 2.7L, Chloride Level 98, Carbon Dioxide Level 27, Anion Gap 10, Blood Urea Nitrogen 24H, Creatinine 1.34H, Estimat Glomerular Filtration Rate 40, BUN/Creatinine Ratio 18, Glucose Level 95, Calcium Level 8.5 Microbiology 02/27/20 Blood Culture - Preliminary, Resulted No growth Home Meds Active Ativan (Lorazepam) 0.5 Mg Tablet 0.5 Mg PO BID 7 Days Zofran (Ondansetron HCl) 4 Mg Tab 4 Mg PO Q6H PRN 14 Days Furosemide 40 Mg Tablet 40 Mg PO DAILY 30 Days HOLD UNTIL FOLLOW UP WITH PCP Reported Zyrtec (Cetirizine HCl) 10 Mg Tablet 10 Mg PO DAILY Omeprazole 40 Mg Capsule. 40 Mg PO DAILY Carvedilol 25 Mg Tablet 25 Mg PO BID Potassium Chloride 10 Meq Capsule.er 20 Meq PO DAILY TAKES 2 (10MEQ) CAPS Lamotrigine 25 Mg Tablet 25 Mg PO BID Buspirone HCl 10 Mg Tablet 10 Mg PO BID PRN Amlodipine Besylate 10 Mg Tablet 10 Mg PO DAILY Aspirin EC (Aspirin) 81 Mg Tablet. 81 Mg PO DAILY Lipitor (Atorvastatin Calcium) 40 Mg Tablet 40 Mg PO HS Fish Oil EC 1,200 mg Softgel ([place]-3S/Dha/Epa/Fish Oil) 1 Each Capsule. 1 Each PO DAILY Assessment/Pt Instructions Take medications as prescribed. Take antiemetics as needed. Hold your Lasix until follow up. Discontinue cannabis use. Follow up with your PCP as scheduled. Discharge Planning: <30 minutes discharge planning Discharge Instructions Discharge Diet: No Restrictions Activity as Tolerated: Yes Discharge Physical Examination Vital Signs Vital Signs Date Time Temp Pulse Resp B/P (MAP) Pulse Ox O2 Delivery O2 Flow Rate FiO2 02/29/20 08:00 36.3 71 20 93/53 (66) 96 Room Air General Appearance: No Apparent Distress, WD/WN Respiratory: Lungs Clear, Normal Breath Sounds, No Respiratory Distress Cardiovascular: Regular Rate, Rhythm, No Edema, No Murmur Gastrointestinal: Normal Bowel Sounds, Non Tender, Soft Extremity: Normal Inspection, Non Tender, No Pedal Edema Skin: Normal Color, Warm/Dry Neurologic/Psychiatric: Alert, Oriented x3, No Motor/Sensory Deficits, Normal Mood/Affect Allergies: Coded Allergies: Penicillins (Verified Allergy, Unknown, Hives, 02/27/20) morphine (Unverified Allergy, Unknown, 12/06/18) paroxetine (Verified Adverse Reaction, Unknown, 02/27/20) increased psych symptoms Discharge Summary Date of Admission Feb 28, 2020 at 14:45 Date of Discharge Discharge Date: Feb 29, 2020 Discharge Time: 12:52 Admission Diagnosis intractable nausea and vomiting Discharge Diagnosis Cannabis hyperemesis syndrome (1) Intractable nausea and vomiting Status: Acute (2) Cannabis hyperemesis syndrome concurrent with and due to cannabis abuse Status: Acute (3) Acute kidney injury superimposed on chronic kidney disease Status: Acute (4) HTN (hypertension) Status: Chronic (5) HLD (hyperlipidemia) Status: Chronic (6) Chronic HFrEF (heart failure with reduced ejection fraction) Status: Chronic (7) Hyponatremia Status: Acute (8) Hypokalemia Status: Acute Clinical Quality Measures DVT/VTE Risk/Contraindication: Risk Factor Score Per Nursin RFS Level Per Nursing on Admit: 4+=Very High KIMBERLY MARINELLI MD Feb 29, 2020 12:51
[2020-02-29 12:55] VITALS: BP 93/53
== END 2020-02-29 13:59 | disposition home or self-care (01) | DRG 392 ==
LOC: EDUNIT# 13:56 → ER 14:00 → 4TH 15:50 → OBSVTOIN 02-28 14:45
PROVIDERS: ADMIT Internal Medicine; ATTEND Internal Medicine
DX: R11.2 Nausea with vomiting, unspecified (principal); E87.1 Hypo-osmolality and hyponatremia; I50.22 Chronic systolic (congestive) heart failure; I13.0 Hypertensive heart and chronic kidney disease with heart failure and stage 1 through stage 4 chronic kidney disease, or unspecified chronic kidney disease; N17.9 Acute kidney failure, unspecified; E86.0 Dehydration; E87.6 Hypokalemia; F12.10 Cannabis abuse, uncomplicated; E78.5 Hyperlipidemia, unspecified; N18.9 Chronic kidney disease, unspecified
CPT/HCPCS: 36415; 51701; 74022; 74176; 80048; 80053; 80306; 81000; 82150; 83605; 83690; 83735; 84145; 85007; 85025; 85027; 85610; 85652; 85730; 86141; 87040; 93041; G0378

== ENCOUNTER 2020-10-23 15:27 | Day surgery (SDC) | payer BC ==
[2020-10-23] VITALS (10 sets, daily range): BP systolic 107–160; BP diastolic 64–94
[~2020-10-23] VITALS: Ht 135 cm; Wt 72.3 kg
[~2020-10-23 15:27] MED LIST changes: +AMLO-251 PO; +ASPI-1238 PO; +BUSP10TA95 PO; +CARV25TA PO; +CETI10TA49 PO; +FURO40TA4 PO; +LAMO25TA8 PO; +LORA-404 PO; +OMEP40CA6 PO; +ONDN4T PO; +POTA10CA43 PO
[2020-10-23 16:23] LABS: HEMATOCRIT 42 % (35-52); HEMOGLOBIN 13.9 g/dL (11.5-16.0); MEAN CORPUSCULAR HEMOGLOBIN 31 pg (25-34); MEAN CORPUSCULAR HGB CONC 34 g/dL (32-36); MEAN CORPUSCULAR VOLUME 92 fL (80-99); MEAN PLATELET VOLUME 8.8 fL (9.0-12.2); PLATELET COUNT 278 10^3/uL (130-400); WHITE BLOOD COUNT 7.3 10^3/uL (4.3-11.0)
[2020-10-23 16:30] LABS: ALBUMIN 4.2 GM/DL (3.2-4.5); POTASSIUM 3.2 MMOL/L (3.6-5.0)
[2020-10-23] MEDS ORDERED: ENOXAPARIN 40 MG/0.4 ML (LOVENOX) SYR SQ SCH (16:30)
[2020-10-23] MEDS ORDERED: FUROSEMIDE 40 MG/4 ML INJ (LASIX) IVP ONE (16:30)
[2020-10-23 16:31] LABS: CALCIUM 9.5 MG/DL (8.5-10.1)
[2020-10-23 16:33] LABS: TOTAL PROTEIN 7.2 GM/DL (6.4-8.2)
[2020-10-23 16:34] LABS: BILIRUBIN,TOTAL 0.7 MG/DL (0.1-1.0)
[2020-10-23 16:36] LABS: CREATININE SERUM 1.03 MG/DL (0.60-1.30)
[2020-10-23] MEDS ORDERED: POTA99TA18 PO (16:41)
[2020-10-23] MEDS ORDERED: FURO40TA4 PO (16:41)
[2020-10-23] MEDS ORDERED: QUET100T33 PO (16:41)
[2020-10-23 16:47] LABS: INR 0.9 (0.8-1.4); PROTHROMBIN TIME PATIENT 12.6 SEC (12.2-14.7)
--- NOTE | 2020-10-23 16:58 | Diagnostic Imaging Report ---
INDICATION: Pacemaker battery replacement. TIME OF EXAM: 4:30 PM. COMPARISON: Correlation is made with the prior chest from 01/11/2019. FINDINGS: The heart size is normal. The cardiac defibrillator remains in place. The lungs are clear. No infiltrates are seen. There is no effusion or pneumothorax. IMPRESSION: No acute cardiopulmonary process is detected. Dictated by: Dictated on workstation # [id number]
[2020-10-24] VITALS: BP 107/57
[2020-10-24 04:00] VITALS: BP 124/75
[2020-10-24] MEDS ORDERED: HEParin 1000 UNIT/ML (10ML VIAL) FOR BOLUS ONE (06:54)
[2020-10-24] MEDS ORDERED: LIDOCAINE 1% INJ 20 ML 20 ML VIAL ONE (06:54)
[2020-10-24] MEDS ORDERED: VANCOMYCIN INJECTION 1,000 MG in NS (IVPB) 250 ML IV ONE (07:00)
[2020-10-24] MEDS ORDERED: NS IV 1000 ML 2,000 ML ONE (07:11)
[2020-10-24] MEDS ORDERED: fentaNYL INJ 100 MCG/2 ML AMP ONE ×2 (07:14→08:38)
[2020-10-24] MEDS ORDERED: MIDAZOLAM 5 MG/5 ML (VERSED) VIAL ONE ×2 (07:15→08:38)
[2020-10-24] MEDS ORDERED: ceFAZolin INJECTION 0 MG ONE (07:15)
[2020-10-24 07:39] VITALS: BP 124/75
--- NOTE | 2020-10-24 08:01 | Cardiology History & Physical ---
HPI-Cardiology Cardiology Consultation Date of Consultation 10/24/20 Date of Admission Time Seen by Provider: 07:58 Indication: Congestive heart failure HPI 65-year-old lady with a history of congestive heart failure, history of sudden cardiac , dilated cardiomyopathy, seen in the office on October 23, 2020 was having increasing shortness of breath, reached DALIA in July 2020, patient did not return phone calls to arrange for generator change. On the office visit she reported that she has been having increasing dyspnea on exertion, orthopnea. No chest pain. No syncope. Decided to admit her and start diuresis and planning for generator change PMH-Cardiology Surgeries Yes (BILATERAL CATARACT SURGERY; REPAIR OF DETATCHED RETINA;HYST/OVARIES INTACT) Respiratory No Cardiovascular Yes (LBBB; DEFIBRILLATOR ) Neurological No Reproductive System Hysterectomy, Tubal Ligation Genitourinary Yes Renal Failure Gastrointestinal No Musculoskeletal No Endocrine Yes (PREDIABETIC) HEENT Yes Dysphagia Cancer No Psychosocial No Integumentary No Blood Transfusions No Other PMHx Discussed below Social History Patient Social History Employed/Student: retired Have you traveled recently?: Yes Where was recent travel?: [place] Alcohol Use?: No Family Hx Other Noncontributory ROS-Cardiology Review of Systems General: No Chills, No Night Sweats, No Fatigue, No Malaise, No Appetite HEENT: No Head Aches, No Visual Changes, No Eye Pain, No Ear Pain, No Dysphasia, No Sinus Congestion, No Post Nasal Drip, No Sore Throat Pulmonary: Dyspnea; No Cough, No Pleuritic Chest Pain Cardiovascular: No: Chest Pain, Palpitations, Orthopnea, Paroxysmal Noc. Dyspnea, Edema, Lt Headedness Gastrointestinal: No: Nausea, Vomiting, Abdominal Pain, Diarrhea, Constipation, Melena, Hematochezia Genitourinary: No Dysuria, No Frequency, No Incontinence, No Hematuria, No Retention Musculoskeletal: No: neck pain, shoulder pain, arm pain, back pain, hand pain, leg pain, foot pain Neurological: No: Weakness, Numbness, Incoordination, Change in speech, Confusion, Seizures Home Medications & Allergies Allergies: Coded Allergies: Penicillins (Verified Allergy, Unknown, Hives, 10/23/20) morphine (Unverified Allergy, Unknown, 10/23/20) paroxetine (Verified Adverse Reaction, Unknown, 10/23/20) increased psych symptoms Home Medication List Reviewed: Yes Exam-Cardiology Vital Signs Vital Signs Date Time Temp Pulse Resp B/P (MAP) Pulse Ox O2 Delivery O2 Flow Rate FiO2 10/24/20 07:39 37.0 89 23 124/75 (91) 97 Room Air Exam General Appearance: Alert, Oriented X3, Cooperative, No Acute Distress HEENT: Atraumatic, PERRLA Respiratory: Clear to Auscultation, Normal Air Movement Cardiovascular: Regular Rate, Normal S1, Normal S2, No Murmurs Abdominal: Normal Bowel Sounds, Soft, No Tenderness, No Hepatosplenomegaly, No Masses Extremities: No Clubbing, No Cyanosis, No Edema, Normal Pulses, No Tenderness/Swelling Skin: No Rashes, No Breakdown, No Significant Lesion Neuro: Normal Gait, Normal Speech, Strength at 5/5 X4 Ext, Normal Tone, Sensation Intact Psych/Mental Status: Mental Status NL, Mood NL Results Labs Labs Laboratory Tests 10/23/20 16:10: White Blood Count 7.3, Red Blood Count 4.51, Hemoglobin 13.9, Hematocrit 42, Mean Corpuscular Volume 92, Mean Corpuscular Hemoglobin 31, Mean Corpuscular Hemoglobin Concent 34, Red Cell Distribution Width 12.9, Platelet Count 278, Mean Platelet Volume 8.8L, Prothrombin Time 12.6, INR Comment 0.9, Activated Partial Thromboplast Time 27, Sodium Level 146H, Potassium Level 3.2L, Chloride Level 107, Carbon Dioxide Level 26, Anion Gap 13, Blood Urea Nitrogen 13, Creatinine 1.03, Estimat Glomerular Filtration Rate 54, BUN/Creatinine Ratio 13, Glucose Level 93, Calcium Level 9.5, Corrected Calcium 9.3, Total Bilirubin 0.7, Aspartate Amino Transf (AST/SGOT) 18, Alanine Aminotransferase (ALT/SGPT) 19, Alkaline Phosphatase 98, B-Type Natriuretic Peptide 111.5H, Total Protein 7.2, Albumin 4.2 10/23/20 18:25: Influenza Type A (RT-PCR) Not Detected, Influenza Type B (RT-PCR) Not Detected, SARS-CoV-2 RNA (RT-PCR) Not Detected A/P-Cardiology Admission Diagnosis Congestive heart failure Sudden cardiac Hypertension Chronic renal insufficiency Admission Status: Observation Assessment/Plan Congestive heart failure, nonischemic cardiomyopathy, chronic compensated left ventricular systolic dysfunction, status post ICD implantation. Ejection fraction 20 to 25% per echo on October 23, 2020, ICD generator change, patient is having dyspnea with exertion worsening symptoms recently, she was admitted and started on diuretics Significant weight gain over the past 6 months. We discussed in length about diet and weight loss. Patient was hospitalized in [facility] with chest pain, stress test and echo were done at [facility], no significant ischemic changes, severe cardiomyopathy. Continue to monitor Cardiac catheterization was done in 2011 showing mild coronary artery disease nonobstructive disease. Repeat cardiac catheterization done November 2018 revealed nonobstructive disease. History of sudden , dilated cardiomyopathy, had an ICD single-chamber Medtronic with serial number [id number], reached DALIA in July, noncompliant with her appointment. Seen in the office with shortness of breath, patient has history of noncompliance, admitted and started on aggressive diuresis and planning for ICD generator change Dyspnea on exertion, still having dyspnea, congestive heart failure, will admit to the hospital start aggressive diuresis Hypertension, good control, continue to monitor Chronic renal insufficiency, was hospitalized for renal failure in [place], patient has resumed Entresto, I will evaluate metabolic profile and creatinine level and evaluate the possibility of continuing her current medication Nonobstructive carotid artery stenosis, most recent carotid duplex done October 2018 Hyperlipidemia- controlled, continue to monitor. ANGELO ROSE MD Oct 24, 2020 8:01 am
--- NOTE | 2020-10-24 08:03 | Conscious Sedation/ASA ---
Conscious Sedation Pre-Proced Time 08:02 ASA Score 3 For ASA 3 and 4: Consider anesthesia and medical clearance. Also, for patients with a history of failed moderate sedation consider anesthesia. Airway Lungs Heart ASA score ASA 1: a normal healthy patient ASA 2: a patient with a mild systemic disease (mid diabetes, controlled hypertension, obesity x ASA 3: a patient with a severe systemic disease that limits activity (angina, COPD, prior Myocardial infarction) ASA 4: a patient with an incapacitating disease that is a constant threat to life (CHF, renal failure) ASA 5: a moribund patient not expected to survive 24 hrs. (ruptured aneurysm) ASA 6: a declared brain- patient whose organs are being harvested. For emergent operations, add the letter E after the classification Mallampati Classification Grade 3 Sedation Plan Analgesia, Amnesia, Plan communicated to team members, Discussed options with patient/fam, Discussed risks with patient/fam The patient is an appropriate candidate to undergo the planned procedure, sedation, and anesthesia. The patient immediately re-assessed prior to indication. ANGELO ROSE MD Oct 24, 2020 8:03 am
[2020-10-24] MEDS ORDERED: HEParin (CATH LAB) 1,000 ML IV ONE (08:59)
[2020-10-24] MEDS ORDERED: ASPIRIN E.C. 81 MG (ECOTRIN) TAB PO SCH (09:00)
[2020-10-24] MEDS: POTASSIUM CL 10MEQ/50ML IVPB 50 ML IV SCH ×4 (09:00→11:21)
--- NOTE | 2020-10-24 09:11 | ICD Change ---
ICD Generator Change Physician (s)/Tongue Binder (s) Physician ANGELO ROSE MD Pre-Procedure Diagnosis Pre-Procedure Diagnosis: DALIA Post-Procedure Note Procedure Start Date: Oct 24, 2020 Name of Procedure: ICD generator change Findings/Procedure Note 65-year-old lady with history of congestive heart failure, has history of sudden , has single-chamber ICD implanted, reached DALIA. Patient was noncompliant, seen in the office with shortness of breath, she was admitted and started on diuretics. Arrangement for ICD generator change was made today. After explaining the procedure to the patient all pros and cons were explained all questions were answered, patient was placed on the cardiac catheterization laboratory, conscious sedation achieved, skin incision was made, old generator device was removed, inspected. Leads appear to be intact. New generator was placed with no complication, direct patch was placed around the device and the device was inserted in the pocket, skin incision was closed on 2 layers with sutures, no complication noted. Post implant interrogation, RV lead bipolar, threshold 0.4 ms at 0.75 V, impedance 570, R wave 16.6 mV. Device information, Medtronic, serial number [id number], [place] VR MRI Conclusion Successful single-chamber ICD generator replacement with no complication Anesthesia Type: Conscious Sedation Estimated blood loss (mL): 5 ml Contrast Amount: 0 ml Post-Procedure Diagnosis Post-operative diagnosis: Congestive heart failure Sudden cardiac Hypertension Shortness of breath ANGELO ROSE MD Oct 24, 2020 9:11 am
[2020-10-24] MEDS ORDERED: CEFU250T80 PO (09:13)
--- NOTE | 2020-10-24 09:13 | Discharge Inst-Post CATH ---
Discharge Inst-CATH/EP Problems Reviewed?: Yes Post Cardiac Cath/EP D/C Inst Follow Up/Plan Appointment with Dr. Buenrostro's office next week <b>CARDIAC CATH/EP PROCEDURE DISCHARGE INSTRUCTIONS</b> ACTIVITY * Go Home directly and rest. * Limit activity of the leg (or wrist if it was used) for 7 days including aerobics, swimming, jogging, bicycling, etc. * Restrict stair-climbing for 7 days if possible, if not, climb up with your non-cath leg, then bring together on the same step. * Avoid lifting, pushing, pulling or excessive movement of the affected extremity for 7 days. * Customary sexual activity may be resumed after 2 days-use caution not to use a position that strains or causes pain to the affected extremity. * No driving for 24 hours. * NO SMOKING. * Avoid straining for bowel movements for 7 days. * Gentle walking on level ground is allowed. * Returning to work will depend on the type of procedure and the results. Your doctor will discuss this with you. CALL YOUR DOCTOR FOR ANY OF THE FOLLOWING: *If bleeding from the puncture site occurs- Apply gentle pressure to site with clean cloth and call your doctor or EMS. * If a knot or lump forms under the skin, increases in size, or causes pain. * If bruising appears to be worsening or moving further down your leg instead of disappearing. * Temperature above 101 F. CARE OF YOUR GROIN INCISION; * Bruising or purple discoloration of the skin near the puncture site is common. * You may shower only, no bathtub bathing for 5 days. Be careful to avoid slipping as your leg may feel stiff. * If a closure device was used on your femoral artery, please see the attached guide regarding care of the device and your leg. * Leave dressing on FOR 24 hours. CARE OF YOUR WRIST INCISION; * Bruising or purple discoloration of the skin near the puncture site is common. * You may shower. * DO NOT submerge wrist. * Leave dressing on FOR 24 hours. ANGELO BUENROSTRO MD Oct 24, 2020 9:13 am
[2020-10-24] MEDS ORDERED: PATIENT MAY USE OWN MEDS, ALL PO SCH (09:15)
[2020-10-24] MEDS ORDERED: NS IV 1000 ML 1,000 ML IV SCH (09:15)
[2020-10-24] MEDS ORDERED: KCL 20 MEQ TAB (K-DUR) PO ONE (11:30)
[2020-10-24 12:00] VITALS: BP 142/86
[2020-10-24] MEDS ORDERED: ceFAZolin INJECTION 1,000 MG in WATER (STERILE) FOR INJECTION 10 ML IV SCH (14:00)
[2020-10-24 14:39] LABS: BUN/CREATININE RATIO 17; CALCIUM 9.3 MG/DL (8.5-10.1); CARBON DIOXIDE 26 MMOL/L (21-32); CHLORIDE 108 MMOL/L (98-107); CREATININE SERUM 0.88 MG/DL (0.60-1.30); GFR ESTIMATED > 60; GLUCOSE 96 MG/DL (70-105); MAGNESIUM 2.2 MG/DL (1.6-2.4); POTASSIUM 3.5 MMOL/L (3.6-5.0); SODIUM 142 MMOL/L (135-145)
[2020-10-24 16:00] VITALS: BP 140/82
== END 2020-10-24 15:50 | disposition home or self-care (01) ==
LOC: CSD 15:27 → CATH 15:27 → EDSTATUS 18:11 → CATH 10-24 15:50 → UNDODISIN 10-24 15:50
PROVIDERS: ATTEND Internal Medicine Cardiovascular Disease
DX: Z45.010 Encounter for checking and testing of cardiac pacemaker pulse generator [battery] (principal); I13.0 Hypertensive heart and chronic kidney disease with heart failure and stage 1 through stage 4 chronic kidney disease, or unspecified chronic kidney disease; I50.22 Chronic systolic (congestive) heart failure; N18.9 Chronic kidney disease, unspecified; I42.0 Dilated cardiomyopathy; I44.7 Left bundle-branch block, unspecified; E78.5 Hyperlipidemia, unspecified; R73.03 Prediabetes; Z86.74 Personal history of sudden cardiac arrest
CPT/HCPCS: 36410; 71046; 76937; 80048; 80053; 83735; 83880; 84443; 85027; 85610; 85730; 87081; 87636; 93306; C1751; 33262; 36415; 99211

== ENCOUNTER → 2021-05-15 | Outpatient (CLI) | payer BC ==
[~2021-05-15] MED LIST changes: +CEFU250T80 PO; +POTA99TA18 PO; +QUET100T33 PO
== END ==
LOC: CARD 09:30
PROVIDERS: ATTEND Internal Medicine Cardiovascular Disease
DX: I35.1 Nonrheumatic aortic (valve) insufficiency (principal); I11.9 Hypertensive heart disease without heart failure
CPT/HCPCS: 93306

== ENCOUNTER → 2022-07-23 | Outpatient (CLI) | payer BC, MEDICARE ==
[~2022-07-23] MED LIST changes: +CATHETER FLUSH 10 ML SYR IVP PRN; -POTA10CA43 PO; +POTA10CA44 PO; +REGADENOSON 0.4 MG/5 ML SYR (LEXISCAN) IV ONE
[2022-07-23 13:23] VITALS: BP 176/107
--- NOTE | 2022-07-24 08:01 | Cardiology Stress Test Report ---
Stress Test Report Date of Procedure/Referring: Date of Procedure: Jul 23, 2022 PCP No,Local Physician Admitting Physician Admitting Physician: Attending Physician: Yvette Kimble Baseline Heart Rate: 78 Baseline Blood Pressure: Blood Pressure Systolic: 176 Blood Pressure Diastolic: 107 Baseline Vitals Vital Signs Date Time Temp Pulse Resp B/P (MAP) Pulse Ox O2 Delivery O2 Flow Rate FiO2 07/23/22 13:23 78 176/107 (130) 97 Baseline EKG: Baseline EKG: LBBB Summary After explaining the procedure to the patient, she signed a consent and then brought to the stress nuclear laboratory. Patient received 0.4 mg Lexiscan for stress test, ECG, heart rate and blood pressure were monitored continuously. Resting and stress dose of radio tracer were injected, imaging was acquired and reviewed in short axis, horizontal long axis and vertical long axis views. TID: 1.14 SSS: 3 SDS: 3 EF: 24 Patient tolerated Lexiscan well Baseline left bundle branch block persisted during test Baseline hypertension persisted during test Diaphragmatic attenuation with mild decrease uptake at the mid to apical inferior wall with mild reversibility, overall there is no significant ischemia or infarction on SPECT images Prominent left ventricle with diffuse left ventricular hypokinesia, ejection fraction 24% Copy Copies To 1: MELVIN HANKINS MD, BASHAR J MD Jul 24, 2022 08:01
== END ==
LOC: CARD 12:45
PROVIDERS: ATTEND Physician Assistant
DX: I25.10 Atherosclerotic heart disease of native coronary artery without angina pectoris (principal); I10 Essential (primary) hypertension
CPT/HCPCS: 78452; 93017; A9502; C8929; 93306

== ENCOUNTER → 2022-07-30 | Day surgery (SDC) | payer MEDICARE ==
[~2022-07-30] VITALS: Ht 167.6 cm; Wt 100.8 kg
[~2022-07-30] MED LIST changes: +ATOR40TA70 PO; -CATHETER FLUSH 10 ML SYR IVP PRN; +ERGO1250 PO; +KCL 20 MEQ TAB (K-DUR) PO NR; +LEVO25CA4 PO; +LORA10TA76 PO; +NS IV 1000 ML 1,000 ML IV SCH; +NS IV 1000 ML 1,000 ML ONE; +OMEG100032 PO; +POTA-177 PO; +POTASSIUM CL 10MEQ/50ML IVPB 50 ML IV SCH; -REGADENOSON 0.4 MG/5 ML SYR (LEXISCAN) IV ONE
[2022-07-30 08:24] VITALS: BP 117/74
--- NOTE | 2022-07-30 09:02 | Diagnostic Imaging Report ---
EXAMINATION: Chest 1 view HISTORY: Congestive heart failure COMPARISON: 12/08/2018 FINDINGS: Heart size and pulmonary vasculature are normal. The lungs are clear without consolidation, pleural effusion, or pneumothorax. The osseous structures are intact. A left-sided cardiac device is present. IMPRESSION: 1. No acute radiographic abnormality in the chest. Dictated by: Dictated on workstation # [id number]
[2022-07-30 09:16] LABS: CLARITY,URINE CLEAR; COLOR,URINE DARK YELLOW; GLUCOSE, URINE (UA) NEGATIVE (NEGATIVE); KETONES,URINE NEGATIVE (NEGATIVE); LEUKOCYTE ESTERASE ,URINE TRACE (NEGATIVE); NITRITE,URINE NEGATIVE (NEGATIVE); PROTEIN,URINE 2+ (NEGATIVE)
[2022-07-30 09:21] LABS: HEMATOCRIT 40 % (35-52); HEMOGLOBIN 13.7 g/dL (11.5-16.0); MEAN CORPUSCULAR HEMOGLOBIN 31 pg (25-34); MEAN CORPUSCULAR HGB CONC 34 g/dL (32-36); MEAN CORPUSCULAR VOLUME 90 fL (80-99); MEAN PLATELET VOLUME 8.9 fL (9.0-12.2); PLATELET COUNT 263 10^3/uL (130-400); WHITE BLOOD COUNT 6.3 10^3/uL (4.3-11.0)
[2022-07-30 09:29] LABS: BACTERIA,URINE FEW /HPF; BILIRUBIN,URINE NEGATIVE (NEGATIVE); SQUAMOUS EPITHELIAL CELL,UR 25-50 /HPF; WBC,URINE 0-2 /HPF
[2022-07-30 09:30] LABS: AMORPHOUS SEDIMENT,UR MOD AMOR URATES /LPF; HYALINE CASTS, URINE 0-2 /LPF
--- NOTE | 2022-07-30 09:34 | Cardiac Procedure Note-CS/ASA ---
Pre-Procedure Note Pre-Op Procedure Note Date of Available H&P: Jul 22, 2022 Date H&P Reviewed: Jul 30, 2022 Time H&P Reviewed: 09:33 History & Physical: H&P Reviewed, Patient Examed, No changes noted Pre-Operative Diagnosis: CHF Moderate Sedation PreProcedure Time 09:33 ASA Score 3 Airway Lungs Heart ASA score ASA 1: a normal healthy patient ASA 2: a patient with a mild systemic disease (mid diabetes, controlled hypertension, obesity ASA 3: a patient with a severe systemic disease that limits activity (angina, COPD, prior Myocardial infarction) ASA 4: a patient with an incapacitating disease that is a constant threat to life (CHF, renal failure) ASA 5: a moribund patient not expected to survive 24 hrs. (ruptured aneurysm) ASA 6: a declared brain- patient whose organs are being harvested. For emergent operations, add the letter E after the classification Mallampati Classification Grade 3 Sedation Plan Analgesia, Amnesia, Plan communicated to team members, Discussed options with patient/fam, Discussed risks with patient/fam The patient is an appropriate candidate to undergo the planned procedure, sedation, and anesthesia. The patient immediately re-assessed prior to indication. ANGELO ROSE MD Jul 30, 2022 09:34
[2022-07-30 09:39] LABS: ALBUMIN 3.9 GM/DL (3.2-4.5); BILIRUBIN,TOTAL 0.7 MG/DL (0.1-1.0); CREATININE SERUM 1.17 MG/DL (0.60-1.30); INR 0.9 (0.8-1.4); PROTHROMBIN TIME PATIENT 12.9 SEC (12.2-14.7); TOTAL PROTEIN 6.7 GM/DL (6.4-8.2)
--- NOTE | 2022-07-30 10:42 | Discharge Inst-Post CATH ---
Discharge Inst-CATH/EP Problems Reviewed?: Yes Post Cardiac Cath/EP D/C Inst Follow Up/Plan Appointment with Dr. Buenrostro's office in 2 to 4 weeks <b>CARDIAC CATH/EP PROCEDURE DISCHARGE INSTRUCTIONS</b> ACTIVITY * Go Home directly and rest. * Limit activity of the leg (or wrist if it was used) for 7 days including aer obics, swimming, jogging, bicycling, etc. * Restrict stair-climbing for 7 days if possible, if not, climb up with your non-cath leg, then bring together on the same step. * Avoid lifting, pushing, pulling or excessive movement of the affected extremi ty for 7 days. * Customary sexual activity may be resumed after 2 days-use caution not to use a position that strains or causes pain to the affected extremity. * No driving for 24 hours. * NO SMOKING. * Avoid straining for bowel movements for 7 days. * Gentle walking on level ground is allowed. * Returning to work will depend on the type of procedure and the results. Your doctor will discuss this with you. CALL YOUR DOCTOR FOR ANY OF THE FOLLOWING: *If bleeding from the puncture site occurs- Apply gentle pressure to site with clean cloth and call your doctor or EMS. * If a knot or lump forms under the skin, increases in size, or causes pain. * If bruising appears to be worsening or moving further down your leg instead of disappearing. * Temperature above 101 F. CARE OF YOUR GROIN INCISION; * Bruising or purple discoloration of the skin near the puncture site is common. * You may shower only, no bathtub bathing for 5 days. Be careful to avoid slipping as your leg may feel stiff. * If a closure device was used on your femoral artery, please see the attached guide regarding care of the device and your leg. * Leave dressing on FOR 24 hours. CARE OF YOUR WRIST INCISION; * Bruising or purple discoloration of the skin near the puncture site is common. * You may shower. * DO NOT submerge wrist. * Leave dressing on FOR 24 hours. ANGELO BUENROSTRO MD Jul 30, 2022 10:42
--- NOTE | 2022-07-30 10:44 | Cardiac Procedure Note-[facility] ---
Cardiology Procedures Date of Procedure 07/30/22 Venogram of the left subclavian column Patient has an ICD, requiring upgrade to BiV device. She was scheduled for venogram After placing the patient on the table, venous access was obtained then 15 mL of contrast were given, venogram was done. 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
== END ==
LOC: CATH 11:00
PROVIDERS: ATTEND Internal Medicine Cardiovascular Disease
DX: I50.22 Chronic systolic (congestive) heart failure (principal); I82.B12 Acute embolism and thrombosis of left subclavian vein; I42.0 Dilated cardiomyopathy; I10 Essential (primary) hypertension; E78.5 Hyperlipidemia, unspecified; E11.9 Type 2 diabetes mellitus without complications; E66.9 Obesity, unspecified; Z95.810 Presence of automatic (implantable) cardiac defibrillator; Z87.891 Personal history of nicotine dependence; Z79.899 Other long term (current) drug therapy; Z68.37 Body mass index [BMI] 37.0-37.9, adult
CPT/HCPCS: 36415; 71045; 75820; 80053; 80061; 81000; 85027; 85610; 85730; 87081; 93005